=== PATIENT | male | born 1995 | race African-American/Black ===

== ENCOUNTER 2019-05-17 06:40 | Emergency (ER) | payer OTHER ==
[~2019-05-17] VITALS: Ht 177.8 cm; Wt 54.4 kg
[2019-05-17 06:42] VITALS: Ht 177.8 cm; Wt 54.4 kg
[2019-05-17 07:29] LABS: BASOPHIL % 0.4 % (0-2); PLATELET COUNT 249 x10^3mcL (130-400)
[2019-05-17 07:32] LABS: CALCIUM 8.2 mg/dL (8.5-10.1); CARBON DIOXIDE 28.9 mmol/L (21-32); CHLORIDE SERUM 111 mmol/L (98-107); CREATININE SERUM 0.7 mg/dL (0.7-1.3); GFR1 > 60 mL/min; GLUCOSE SERUM 102 mg/dL (74-106); POTASSIUM SERUM 4.1 mmol/L (3.5-5.1); SODIUM SERUM 148 mmol/L (136-145)
[2019-05-17 07:36] LABS: ALBUMIN 4.1 g/dL (3.4-5.0); ALKALINE PHOSPHATASE 81 U/L (46-116); ALT/SGPT 60 U/L (16-63); AST/SGOT 32 U/L (15-37); BILIRUBIN TOTAL 0.2 mg/dL (0.20-1.00); RED CELL DISTRIBUTION WIDTH 15.1 % (11.5-14.5); TOTAL PROTEIN, SERUM 7.4 g/dL (6.4-8.2)
[2019-05-17 11:18] LABS: AMPHETAMINE QUAL UR NONE DETECTED (See below)
[2019-05-17 19:58] VITALS: BP 105/63
== END 2019-05-17 19:58 | disposition short-term general hospital (02) ==
LOC: ED 06:40
PROVIDERS: Emergency Medicine
DX: S51.012A Laceration without foreign body of left elbow, initial encounter (principal); S61.512A Laceration without foreign body of left wrist, initial encounter; F32.9 Major depressive disorder, single episode, unspecified; F14.10 Cocaine abuse, uncomplicated; Z91.010 Allergy to peanuts; Z91.013 Allergy to seafood; W26.8XXA Contact with other sharp object(s), not elsewhere classified, initial encounter; Y93.89 Activity, other specified; Y92.89 Other specified places as the place of occurrence of the external cause; Y99.8 Other external cause status
CPT/HCPCS: 36415; G0480